=== PATIENT | male | born 1950 | race Caucasian/White ===

== ENCOUNTER 2018-08-31 12:54 | Emergency (ER) | payer MEDICARE, BC ==
[~2018-08-31] VITALS: Ht 182.9 cm; Wt 97.5 kg
[2018-08-31] MEDS ORDERED: ASPIR 8181 MG PO (13:08)
[2018-08-31] MEDS ORDERED: METFORMIN HCL500 MG PO (13:09)
[2018-08-31] MEDS ORDERED: NORVASC5 MG PO (13:09)
[2018-08-31] MEDS ORDERED: SIMVASTATIN40 MG PO (13:09)
[2018-08-31] MEDS ORDERED: ZESTORETIC 20-1 EACH PO (13:11)
[2018-08-31] MEDS ORDERED: KEFLEX500 M1 PO (13:22)
[2018-08-31 13:36] VITALS: BP 174/79
== END 2018-08-31 14:14 | disposition home or self-care (01) ==
LOC: M.ERS 12:54
DX: S61.210A Laceration without foreign body of right index finger without damage to nail, initial encounter (principal); S61.212A Laceration without foreign body of right middle finger without damage to nail, initial encounter; I10 Essential (primary) hypertension; E11.9 Type 2 diabetes mellitus without complications; E78.00 Pure hypercholesterolemia, unspecified; X58.XXXA Exposure to other specified factors, initial encounter; Y93.89 Activity, other specified; Y92.89 Other specified places as the place of occurrence of the external cause; Y99.8 Other external cause status

== ENCOUNTER 2021-11-15 14:32 | Emergency (ER) | payer MEDICARE, BC ==
[~2021-11-15] VITALS: Ht 182.9 cm; Wt 97.5 kg
[~2021-11-15 14:32] MED LIST: ASPIR 8181 MG PO; KEFLEX500 M1 PO; METFORMIN HCL500 MG PO; NORVASC5 MG PO; SIMVASTATIN40 MG PO; ZESTORETIC 20-1 EACH PO
[2021-11-15] MEDS ORDERED: HYDROCODON-ACE1 EAC7 PO (17:04)
[2021-11-15 17:14] VITALS: BP 181/77
== END 2021-11-15 17:16 | disposition home or self-care (01) ==
LOC: M.ERS 14:32
DX: M25.511 Pain in right shoulder (principal); I10 Essential (primary) hypertension; E11.9 Type 2 diabetes mellitus without complications; E78.00 Pure hypercholesterolemia, unspecified; Z79.2 Long term (current) use of antibiotics; Z79.82 Long term (current) use of aspirin; Z79.899 Other long term (current) drug therapy; W00.0XXA Fall on same level due to ice and snow, initial encounter; Y93.89 Activity, other specified; Y92.89 Other specified places as the place of occurrence of the external cause; Y99.8 Other external cause status

== ENCOUNTER → 2021-11-21 | Outpatient (CLI) | payer MEDICARE, BC ==
[~2021-11-21] MED LIST changes: +HYDROCODON-ACE1 EAC7 PO
== END ==
LOC: M.MRI 07:44
PROVIDERS: ATTEND Orthopaedic Surgery
DX: S46.011A Strain of muscle(s) and tendon(s) of the rotator cuff of right shoulder, initial encounter (principal); M19.211 Secondary osteoarthritis, right shoulder; M25.411 Effusion, right shoulder; X58.XXXA Exposure to other specified factors, initial encounter; Y93.89 Activity, other specified; Y92.89 Other specified places as the place of occurrence of the external cause; Y99.8 Other external cause status